=== PATIENT | female | born 1935 | race Caucasian/White ===

== ENCOUNTER 2021-05-16 12:00 | Day surgery (SDC) | payer OTHER, MEDICARE ==
--- NOTE | 2021-05-09 10:33 | RAD REPORT ---
EXAM DESCRIPTION: Abeba Karimi And Hung (2 Views)05/09/2021 10:01 am CLINICAL HISTORY: Preop cardiac catheterization COMPARISON: 2017 FINDINGS: The lungs are moderately hyperaerated. The lungs appear clear of acute infiltrate. The heart is normal size IMPRESSION: COPD without visualization of an acute abnormality
[2021-05-09 10:38] LABS: Potassium 4.5 mmol/L (3.5-5.1)
[2021-05-09 10:59] LABS: Absolute Lymphocytes (CBC) 2.5 K/uL (0.7-4.9); Basophils % 0.4 % (0-1.3); Hematocrit 41.8 % (36.0-45.0); Lymphocytes % 32.6 % (15.3-44.8); MPV 8.1 fL (7.6-11.3); RBC Red Blood Cell Count 4.45 M/uL (3.86-4.86)
[2021-05-09 11:12] LABS: Protime INR 0.9
[~2021-05-16 12:00] MED LIST: NA CHLORIDE 0.9% 500 ML ONE
[2021-05-16] MEDS ORDERED: LIDOCAINE 1% 20 ML MDV ONE (12:30)
[2021-05-16] MEDS ORDERED: HEPA 1000U/500MLS 2,000 UNIT/1,000 ML BAG IV ONE (12:30)
[2021-05-16] MEDS ORDERED: FENTANYL CITR 100 MCG/2 ML ONE (13:56)
[2021-05-16] MEDS ORDERED: ATROPINE SULF 1 MG/10 ML SYR IV ONE (13:56)
[2021-05-16] MEDS ORDERED: MIDAZOLAM HCL 2 MG/2 ML INJ ONE (13:56)
[2021-05-16] MEDS ORDERED: ONDANSETRON 4 MG/2 ML VIAL ONE (14:32)
[2021-05-16] MEDS ORDERED: PROMETHAZINE INJ 25 MG/ML AMP ONE (14:38)
[2021-05-16 16:56] VITALS: TEMP 97.5
[2021-05-16 17:02] VITALS: O2SAT 96
[2021-05-16 17:06] VITALS: BP 148/46
--- NOTE | 2021-05-16 18:16 | OP ---
Date of Procedure: 05/16/2021 Surgeon: SOULEYMANE LAM Procedures Performed: 1.Selective coronary angiogram. 2.Selective bilateral carotid angiogram. 3.Left heart catheterization. Indication: 1.Carotid stenosis by ultrasound. 2.Significant dyspnea on exertion. Access: Right femoral artery 6-Macedonian closed with 6-Macedonian Angio-Seal. Complications: None. Bleeding: Less than 10 mL. Description Of Procedure: After risks, benefits, and alternatives were explained, the patient agreed to procedure and signed informed consent. The patient was brought into cardiac [facility], prepped and draped in usual sterile fashion. Then, I accessed right femoral artery using mp ropuncture kit under ultrasound guidance as well as fluoroscopy, placed a 6-Macedonian [place] sheath. I took a 6-Macedonian JL4 catheter into the aortic root, engaged the left main, took standard views and t hen exchanged for 6-Macedonian JR4 catheter, engaged the RCA, took standard views and the same catheter w as pushed over the wire into the LV, took LVEDP. Then, pullback did not record any gradient. Used c atheter also to engage the brachiocephalic artery and obtained a selective injection of the right com mon carotid artery and then engaged the left common carotid artery and took selective angiogram and t he catheter sheath was removed and placed a 6-Macedonian Angio-Seal with good hemostasis. Findings: 1.Left main has an ostial 20% to 40% stenosis with a very large vessel. 2.LAD; proximal diffuse 20% to 30% stenosis and diagonal 1 branch has proximal 60% stenosis. Otherw ise, the vessel is unremarkable. 3.Left circumflex is normal. 4.RCA is dominant and normal. 5.LVEDP 16 mmHg. Carotid Angiogram: 1.Left common carotid has an ostial 40% to 50% stenosis and then the left internal carotid is totall y normal. Left external carotid has ostial 70% stenosis and small vessel. 2.Right common carotid has diffuse proximal 20% stenosis, otherwise unremarkable. Conclusion: 1.Mild nonobstructive coronary artery disease. 2.Mild nonobstructive carotid stenosis. Plan: Medical management. SR/MODL Voice ID: [id number] Report ID: [id number]
== END 2021-05-16 17:21 | disposition home or self-care (01) ==
LOC: CCL 12:00
PROVIDERS: ATTEND Internal Medicine
DX: I25.10 Atherosclerotic heart disease of native coronary artery without angina pectoris (principal); I65.23 Occlusion and stenosis of bilateral carotid arteries; I10 Essential (primary) hypertension; E78.5 Hyperlipidemia, unspecified; Z20.822 Contact with and (suspected) exposure to COVID-19
CPT/HCPCS: 85025; 80048; 36415; 85610; 85730; 71046; 93458; 36222; U0003; C1893; C1760; J2550; J2250; J3010; J7040; J1644; J2405

== ENCOUNTER 2023-05-26 07:29 | Observation (INO) | payer OTHER, MEDICARE ==
--- OUTSIDE RECORDS SUMMARY | 2023-05-26 07:37 | XMS REPORT | Clinical Summary ---
:1935 Author Organization [facility] MD [facility] Address [address] [place] [address] Care Team Providers Name Role Phone Trista Medina MD Primary Care Provider Sy Ybarra MD Unavailable [phone] Allergies No known active allergies Medications Medication Sig Dispensed Refills Start Date End Date Status SPIRONOLACTONE ORAL 50 mg daily. 0 Active atorvastatin (LIPITOR) 0 Active 80 mg tablet amLODIPine (NORVASC) 10 0 11/29/2020 Active mg tablet levothyroxine 50 mcg 0 Active cap melatonin-pyridoxine, AT BEDTIME 0 06/30/2017 Active vit B6, 5-1 mg tab cyanocobalamin, vitamin Take by mouth 0 Active B-12, (VITAMIN B-12 daily. ORAL) fluorouracil (Efudex) Apply topically 40 g 0 01/03/2021 Active 5% creamIndications: to affected Squamous cell carcinoma area(s) twice of skin of right lower daily. One week limb, including hip after cryotherapy, use for 5 days then stop. Active Problems Not on file Surgical History Surgery Date Site/Laterality Comments COLONOSCOPY HYSTERECTOMY 06/29/1995 - 06/28/1996 Medical History Medical History Date Comments Hypertension 2005 Hyperlipidemia 1980 Hearing loss 2017 Left ear nothing Arthritis Disorder of thyroid gland 1980 Mild Family History Medical History Relation Name Comments Breast cancer Mother Elida fernandez Relation Name Status Comments Mother Elida fernandez Social History Tobacco Use Types Packs/Day Years Used Date Smoking Tobacco: Never Smokeless Tobacco: Never Alcohol Use Standard Drinks/Week Comments Not Currently 3 (1 standard drink = 0.6 oz pure alcoho l) Only hot weather Sex and Gender Information Value Date Recorded Sex Assigned at Female 04/02/2021 8:23 PM CDT Gender Identity Female 04/02/2021 8:23 PM C DT Sexual Orientation Not on file Job Start Date Occupation Industry Not on file Not on file Not on file Obstetrics History Last Filed Vital Signs Not on file Plan of Treatment Health Maintenance Due Date Last Done Comments COVID-19 Vaccination (#1) 09/22/1940 Results Not on fileafter 05/26/2022 Insurance Payer Benefit Plan Subscriber ID Effective Phone Address Typ e / Group Dates MEDICARE MEDICARE PART [id number] 2000-Pres [phone] [place]OV[place]AS Medicare A AND B ent [id number] [address] [facility] DIANE ABERNATHY [phone] [place] AAR-SECONDAR [id number] 2020-Pres P [address]OX [employer] ONLY ent [id number] [place] [address] Mara Pereyra Personal/Family Self 1935 [address] (Home) [place] [address] Care Teams 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
--- OUTSIDE RECORDS SUMMARY | 2023-05-26 07:38 | XMS REPORT | Continuity of Care Document ---
:1935 Author Organization [facility] t Address [address] [facility] [address] [place] [address] Care Team Providers Name Role Phone [phone] Primary Care Physician Unavailable SYSTEM, PROVIDER NOT IN Attending Clinician Unavailable [email or web address] Attending Clinician Unavailable MERRICK STEWART Attending Clinician Unavailable Merrick Stewart MD Attending Clinician REBEL LOPEZ Attending Clinician Unavailable TANI NAVA Attending Clinician Unavailable [email or web address] Admitting Clinician Unavailable Payers Payer Name Policy Type Policy Number Effective Date Expiration Date S mateus MEDICARE PART A \T\ [id number] 2000 B 00:00:00 [facility] [id number] 2020 MEDICARE SUPPLEMENT 00:00:00 MEDICARE PART A AND [id number] 2000 B 00:00:00 [employer]-SECONDARY ONLY [id number] 2020 00:00:00 Problems Condition Condition Condition Status Onset Resolution Last Treating Co mments Source Name Details Category Date Date Treatment Clinician Date No known No known Disease Unive rs active active ity of problems problems [facility] Allergies, Adverse Reactions, Alerts Allergy Allergy Status Severity Reaction(s) Onset Inactive Treating Comm ents Source Name Type Date Date Clinician NO KNOWN Drug Active Univers ALLERGIE Class ity of S [facility] Family History Family Member Diagnosis Comments Start Date Stop Date Source Natural mother Breast cancer [facility] [place] MD Mark Mccormick [facility] Social History Social Habit Start Date Stop Date Quantity Comments Source Exposure to Not sure University SARS-CoV-2 (event) [facility] Sexual orientation [facility] [place] [facility] Tobacco use and 2021-01-03 2021-01-03 Smokeless Universit y of exposure 00:00:00 00:00:00 tobacco non-user [facility] Alcohol intake 2021-01-03 2021-01-03 Ex-drinker University 00:00:00 00:00:00 (finding) [place] MD Saji varner [facility] History of Social 2021-01-03 2021-01-03 Univers ity of function 00:00:00 00:00:00 [place] Saji varner [facility] Alcohol Comment 2021-01-03 2021-01-03 Only hot weather Uni versity of 00:00:00 00:00:00 [place] MD Saji varner [facility] Sex Assigned At [birth year] Bahai 00:00:00 00:00:00 Hospital Smoking Status Start Date Stop Date Source Tobacco smoking consumption Meth [facility] unknown Never smoked tobacco [facility] Medications Ordered Filled Start Stop Current Ordering Indication Dosage Frequency Signature Comments Components Source Medication Medication Date Date Medication? Clinician (SIG) Name Name No known 2020-06 No Univers medications -08 ity of 11:44: [address] SPIRONOLACT 2020-06 Yes 50mg 50 mg Unive rs ONE ORAL 0-12 daily. ity of 13:30: [place] [address] MD Ki camp [facility] atorvastati 2020-06 Yes Vipin camp (LIPITOR) 0-12 ity of 80 mg 13:30: [place] tablet 55 MD Ki camp [facility] levothyroxi 2020-06 Yes Vipin dodge ne 50 mcg 0-12 ity of cap 13:30: [place] 55 MD [facility] cyanocobala 2020-06 Yes Take by Uni vers min, 0-12 mouth ity of vitamin 13:30: daily. [place] B-12, Sandra AMAYA (VITAMIN Anderso B-12 ORAL) zoë [facility] fluorouraci Yes Squamous Apply U nivers l (Efudex) 7-08 cell topically ity of 5% cream 00:00: [place] of skin of affected MD right lower area(s) Saji so limb, twice n including daily. One Canc er hip week after Center cryotherap y, use for 5 days then stop. amLODIPine Yes Univers (NORVASC) 6-03 ity of 10 mg 00:00: [place] tablet 00 [facility] melatonin-p 2017-0 Yes AT BEDTIME Univers yridoxine, 1-02 ity of vit B6, 5-1 00:00: [place] mg tab 00 [facility] Procedures This patient has no known procedures. Plan of Care Planned Activity Planned Date Details Comments Source Future Scheduled 2023-04-26 SHINGLES VACCINES (1 Met [facility] Test 02:16:54 of 2) [code = SHINGLES VACCINES (1 of 2)] Future Scheduled 2023-04-26 65+ PNEUMOCOCCAL Methodi [facility] Test 02:16:54 VACCINE (1 - PCV) [code = 65+ PNEUMOCOCCAL VACCINE (1 - PCV)] Future Scheduled 2023-04-26 COVID-19 VACCINE (3 - [facility] [place] Test 02:16:54 season) [code = COVID-19 VACCINE (3 - season)] Future Scheduled 2023-04-26 INFLUENZA VACCINE Method [facility] Test 02:16:54 (#1) [code = INFLUENZA VACCINE (#1)] Future Scheduled 2023-01-23 COVID-19 Vaccination Uni [facility] Test 05:08:27 (#1) [code = COVID-19 And [facility] Vaccination (#1)] Center Encounters Start End Encounter Admission Attending Care Care Encounter Source Date/Time Date/Time Type Type Clinicians Facility Department ID 2020-12-19 Outpatient SYSTEM, [facility] [id number] 15:34:25 PROVIDER Francis camp 2023-04-27 2023-04-27 Outpatient GC_GCBZW_Ka PRIV PRIV [id number] [facility] 00:00:00 00:00:00 diyala_S [id number] Medic al 2023-04-26 2023-04-26 Outpatient GC_GCBZW_Ka PRIV PRIV [id number] [facility] 00:00:00 00:00:00 diyala_S [id number] Medic al 2021-05-06 2021-05-06 Outpatient Mae STEWART [facility] [id number] Univers 11:15:00 11:30:42 MERRICK menchaca [facility] 2021-05-06 2021-05-06 Outpatient Mae STEWART [facility] [id number] Univers 11:15:00 11:30:42 MERRICK menchaca [facility] 2021-05-06 2021-05-06 Outpatient Mae STEWART [facility] [id number] Univers 11:15:00 11:30:42 MERRICK menchaca [facility] 2021-05-06 2021-05-06 Office TREMAYNE Stewart [id number] Univers 10:44:46 11:30:42 Visit [facility] [id number] [facility]y of [facility] [id number] Mitch dodge [id number] [address] 2021-04-11 2021-04-11 Outpatient JOHN [facility] [id number] [address] [place] [address] 00:00:00 00:00:00 REBEL 150 Method i 2021-04-11 2021-04-11 Outpatient JOHN [facility] [id number] [address] [place] [address] 00:00:00 00:00:00 REBEL 149 Method i 2021-04-09 2021-04-09 Outpatient FLORY NAVA, MDA MDA [id number] 13:17:03 13:52:47 TANI camp 2021-01-03 2021-01-03 Outpatient FLORY NAVA, MDA MDA [id number] 07:28:44 08:36:44 TANI camp 2021-01-03 2021-01-03 Outpatient EL MDA MDA [id number] 07:12:15 07:12:15 Francis camp Results This patient has no known results.
[2023-05-26 09:28] LABS: Absolute Lymphocytes (CBC) 2.6 K/uL (0.7-4.9); Hematocrit 44.3 % (36.0-45.0); Lymphocytes % 31.3 % (15.3-44.8); MCV 96.1 fL (80-100); MPV 7.2 fL (7.6-11.3); Platelets 247 thou/uL (152-406); RBC Red Blood Cell Count 4.61 M/uL (3.86-4.86)
--- NOTE | 2023-05-26 09:32 | RAD REPORT ---
EXAM DESCRIPTION: CT - Head Brain Wo Cont - 05/26/2023 8:57 am CLINICAL HISTORY: HEADACHE COMPARISON: No comparisons TECHNIQUE: Noncontrast head CT images were obtained without IV contrast. Multiplanar reformats were generated and reviewed. All CT scans are performed using dose optimization technique as appropriate and may include automated exposure control or mA/KV adjustment according to patient size. FINDINGS: No intracranial hemorrhage, mass, or edema. Midline structures are unremarkable. Normal ventricular caliber for age. Mild diffuse parenchymal volume loss. Patchy periventricular and deep white matter hypodensities, nonspecific, but most suggestive of chron ic small vessel ischemic changes. Casanova-white matter differentiation is preserved, without evidence of acute infarct. No abnormal extra- axial fluid collections. Mastoid air cells and visualized portions of the paranasal sinuses are clear. No acute bony findings. IMPRESSION: No evidence of an acute intracranial process. Chronic findings as above.
[2023-05-26 09:46] LABS: Potassium 4.4 mEq/L (3.5-5.1)
[2023-05-26 09:49] LABS: Troponin High Sensitivity 360.9 pg/mL (<58.9)
--- NOTE | 2023-05-26 09:56 | ER ---
Nurse's Notes [facility] Name: Mara Pereyra Age: 87 yrs Sex: Female : 1935 Arrival Date: 05/26/2023 Time: 07:29 Bed 13 Private MD: Sy Ybarra V Diagnosis: Non ST elevation FL;Essential (primary) hypertension Presentation: 05/26 07:51 Chief complaint: Patient states: high BP reading at home, was 217/106 , takes Coreg 10 iw mg daily , normally takes it at night but she took an extra one this morning. Coronavirus screen: At this time, the client does not indicate any symptoms associated with coronavirus-19. Ebola Screen: Patient negative for fever greater than or equal to 101.5 degrees Fahrenheit, and additional compatible Ebola Virus Disease symptoms Patient denies exposure to infectious person. Patient denies travel to an Ebola-affected area in the 21 days before illness onset. No symptoms or risks identified at this time. Risk Assessment: Do you want to hurt yourself or someone else? Patient reports no desire to harm self or others. Onset of symptoms was May 26, 2023. 07:51 Method Of Arrival: Ambulatory iw 07:51 Acuity: LYSSA 3 iw 07:52 Initial Sepsis Screen: Does the patient meet any 2 criteria? Does the patient have a iw suspected source of infection? No. Patient's initial sepsis screen is negative. Historical: - Allergies: 07:53 No Known Allergies; iw - PMHx: 07:53 Hypertensive disorder; iw - Immunization history:: Adult Immunizations unknown. - Social history:: Smoking status: unknown. Screenin:30 [facility] ED Fall Risk Assessment (Adult) Score/Fall Risk Level 0 - 2 = Low Risk aa5 Oriented to surroundings, Maintained a safe environment, Hourly rounding (assess needs \T\ fall precautionary measures) done. Abuse screen: Denies threats or abuse. Denies injuries from another. Nutritional screening: No deficits noted. Tuberculosis screening: No symptoms or risk factors identified. Assessment: 09:10 General: Appears in no apparent distress. comfortable, Behavior is calm, cooperative, aa5 appropriate for age. 09:10 Pain: Denies pain. Neuro: Level of Consciousness is awake, alert, obeys commands, aa5 Oriented to person, place, time, situation. Cardiovascular: Patient's skin is warm and dry. Respiratory: Airway is patent Respiratory effort is even, unlabored. 10:13 General: Appears in no apparent distress. comfortable, Behavior is calm, cooperative, mb9 appropriate for age. Pain: Denies pain. Neuro: Level of Consciousness is awake, alert, obeys commands, Oriented to person, place, time, situation. Cardiovascular: Heart tones S1 S2 present Patient's skin is warm and dry. Rhythm is regular. Respiratory: Airway is patent Respiratory effort is even, unlabored, Respiratory pattern is regular, symmetrical. GI: Abdomen is flat, non-distended, Bowel sounds present X 4 quads. Abd is soft and non tender X 4 quads. : No signs and/or symptoms were reported regarding the genitourinary system. EENT: No signs and/or symptoms were reported regarding the EENT system. Derm: Skin is pink, warm \T\ dry. Musculoskeletal: Range of motion: intact in all extremities. 12:00 Reassessment: No changes from previously documented assessment. Patient and/or family mb9 updated on plan of care and expected duration. Pain level reassessed. Patient is alert, oriented x 3, equal unlabored respirations, skin warm/dry/pink. 13:45 Reassessment: No changes from previously documented assessment. Patient and/or family mb9 updated on plan of care and expected duration. Pain level reassessed. Patient is alert, oriented x 3, equal unlabored respirations, skin warm/dry/pink. Vital Signs: 07:52 BP 205 / 77; Pulse 63; Resp 16; Temp 98.1; Pulse Ox 98% on R/A; iw 09:27 BP 183 / 72; Pulse 51; Resp 18; Pulse Ox 100% on R/A; mb9 10:13 BP 161 / 67; Pulse 53; Resp 16; Pulse Ox 100% on R/A; mb9 10:20 Weight 71.21 kg; Height 5 ft. 3 in. ; mb9 12:45 BP 163 / 72; Pulse 56; Resp 16; Pulse Ox 100% on R/A; mb9 14:28 BP 142 / 54; Pulse 69; Resp 16; Pulse Ox 100% on R/A; mb9 10:20 Body Mass Index 27.81 (71.21 kg, 160.02 cm) mb9 ED Course: 07:30 Patient arrived in ED. rg4 07:30 Sy Ybarra MD is Private Physician. rg4 07:37 Duane Russell DO is Attending Physician. ms3 07:52 Triage completed. iw 07:54 Arm band placed on. iw 08:59 CT Head Brain wo Cont In Process Unspecified. EDMS 09:07 XRAY Chest (1 view) In Process Unspecified. EDMS 09:10 Patient has correct armband on for positive identification. Bed in low position. Call aa5 light in reach. Adult w/ patient. 09:10 Provided Education on: call light, fall precautions. aa5 09:22 Initial lab(s) drawn, by wv, sent to lab. Inserted saline lock: 22 gauge in right em1 forearm, using aseptic technique. Blood collected. 09:27 Mara Leo, ASTRID is Primary Nurse. mb9 09:33 EKG done, by ED staff, reviewed by Duane Russell DO. em1 09:55 Sy Ybarra MD is Hospitalizing Provider. ms3 10:14 No provider procedures requiring assistance completed. Patient admitted, IV remains in mb9 place. Administered Medications: 10:13 Drug: Aspirin PO 325 mg PO once Route: PO; mb9 10:25 Follow up: Response: No adverse reaction mb9 10:25 Drug: Enoxaparin Sub-Q 1 mg/kg Sub-Q once Route: Sub-Q; Site: left lower abdomen; mb9 11:33 Follow up: Response: No adverse reaction mb9 Medication: 13:25 VIS not applicable for this client. iw Outcome: 09:55 Decision to Hospitalize by Provider. ms3 15:56 Admitted to OR Report called to ASTRID Wong mb9 15:56 Condition: stable 15:56 Instructed on the need for admit, 15:57 Patient left the ED. mb9 Signatures: Dispatcher [employer] EDMS Vira Knutson RN RN iw Camron Parker em1 Nilda Lino RN RN aa5 Garcia, Rubi rg4 Duane Russell DO DO ms3 Mara Leo RN RN mb9 Corrections: (The following items were deleted from the chart) 07:53 07:51 Chief complaint: Patient states: high BP reading at home, was 217/106 iw iw 09:20 09:18 Nilda Lino, ASTRID is Primary Nurse. aa5 aa5 10:13 10:05 BP 169 / 70; Pulse 53bpm; Resp 16bpm; Pulse Ox 100% RA; mb9 mb9
--- NOTE | 2023-05-26 09:56 | EDPHYS ---
Physician Documentation [facility] Name: Mraa Pereyra Age: 87 yrs Sex: Female : 1935 Arrival Date: 05/26/2023 Time: 07:29 Bed 13 Private MD: Sy Ybarra V ED Physician Duane Russell HPI: 05/26 08:48 This 87 yrs old Female presents to ER via Ambulatory with complaints of High Blood ms3 Pressure. 08:48 87-year-old female with past medical history of hypertension presents to the emergency ms3 department for elevated blood pressure that was noted this morning. Patient states on waking up she had frontal head pressure behind her eyes that she rated 7/10. Patient states she then took her blood pressure and noted it was elevated on several readings. Patient denies nausea, vomiting. Patient states she sees Dr. Ybarra. Historical: - Allergies: 07:53 No Known Allergies; iw - PMHx: 07:53 Hypertensive disorder; iw - Immunization history:: Adult Immunizations unknown. - Social history:: Smoking status: unknown. ROS: 08:48 Constitutional: Negative for fever, and chills. Neck: Negative for injury, pain, and ms3 swelling, Cardiovascular: Negative for chest pain, and palpitations. Respiratory: Negative for shortness of breath, cough, wheezing, and pleuritic chest pain, Abdomen/GI: Negative for abdominal pain, nausea, vomiting, diarrhea, and constipation, Skin: Negative for injury, rash, and discoloration, 08:48 Neuro: Positive for headache, 08:48 All other systems are negative, Exam: 08:48 Constitutional: This is a well developed, well nourished patient who is awake, alert, ms3 and in no acute distress. Head/Face: Normocephalic, atraumatic. Neck: Trachea midline, no cervical lymphadenopathy. Supple, full range of motion without nuchal rigidity, or vertebral point tenderness. No Meningismus. Chest/axilla: Normal chest wall appearance and motion. Nontender with no deformity. Cardiovascular: Regular rate and rhythm with a normal S1 and S2. No gallops, murmurs, or rubs. Normal PMI, no JVD. No pulse deficits. Respiratory: Lungs have equal breath sounds bilaterally, clear to auscultation and percussion. No rales, rhonchi or wheezes noted. No increased work of breathing, no retractions or nasal flaring. Abdomen/GI: Soft, non-tender, with normal bowel sounds. No distension or tympany. No guarding or rebound. No evidence of tenderness throughout. Skin: Warm, dry with normal turgor. Normal color with no rashes, no lesions, and no evidence of cellulitis. MS/ Extremity: Pulses equal, no cyanosis. Neurovascular intact. Full, normal range of motion. Neuro: Awake and alert, GCS 15, oriented to person, place, time, and situation. Cranial nerves II-XII grossly intact. Motor strength 5/5 in all extremities. Sensory grossly intact. Cerebellar exam normal. Normal gait. 10:26 ECG was reviewed by the Attending Physician. ms3 Vital Signs: 07:52 BP 205 / 77; Pulse 63; Resp 16; Temp 98.1; Pulse Ox 98% on R/A; iw 09:27 BP 183 / 72; Pulse 51; Resp 18; Pulse Ox 100% on R/A; mb9 10:13 BP 161 / 67; Pulse 53; Resp 16; Pulse Ox 100% on R/A; mb9 10:20 Weight 71.21 kg; Height 5 ft. 3 in. ; mb9 12:45 BP 163 / 72; Pulse 56; Resp 16; Pulse Ox 100% on R/A; mb9 14:28 BP 142 / 54; Pulse 69; Resp 16; Pulse Ox 100% on R/A; mb9 10:20 Body Mass Index 27.81 (71.21 kg, 160.02 cm) mb9 MDM: 08:00 Patient medically screened. ms3 08:48 Differential diagnosis: hypertensive crisis, Malignant HTN, intracerebral hemorrhage. ms3 09:06 Independent interpretation of the following test(s) in the Emergency Department CT ms3 Scan: My interpretation is CT Head images reviewed by me does not reveal ICH. 10:24 Data reviewed: vital signs, nurses notes, lab test result(s), EKG, radiologic studies, ms3 and as a result, I will discharge patient. Consideration of Admission/Observation Patient was admitted/placed on observation. Management of patient was discussed with the following: Hospitalist: Dr Ybarra. Go Go Dancer: Dr Ford. I considered the following discharge prescriptions or medication management in the emergency department Medications were administered in the Emergency Department. See MAR. Historians other than the Patient: Spouse/Significant Other: Patient's . Care significantly affected by the following chronic conditions: Hypertension. Counseling: I had a detailed discussion with the patient and/or guardian regarding the historical points, exam findings, and any diagnostic results supporting the discharge/admit diagnosis, lab results, radiology results, the need for further work-up and treatment in the hospital. ED course: Discussed case with Dr. Ford and Dr. Ford. Dr. Espinal recommends 1 dose of Lovenox.. 12:59 ED course: Called from lab for increase in troponin to 2727. Discussed with Dr Ford. ms3 He will take patient to cath today. Keep NPO. Updated Dr Ybarra on elevation of troponin.. 05/26 08:48 Order name: Basic Metabolic Panel; Complete Time: 09:51 ms3 05/26 08:48 Order name: CBC with Diff; Complete Time: 09:51 ms3 05/26 08:48 Order name: Troponin HS; Complete Time: 09:51 ms3 05/26 11:56 Order name: Basic Metabolic Panel EDMS 05/26 11:56 Order name: Basic Metabolic Panel EDMS 05/26 11:56 Order name: CBC with Automated Diff EDMS 05/26 11:56 Order name: CBC with Automated Diff EDMS 05/26 11:56 Order name: Troponin High Sensitivity EDMS 05/26 08:48 Order name: XRAY Chest (1 view); Complete Time: 11:52 ms3 05/26 08:48 Order name: CT Head Brain wo Cont; Complete Time: 09:51 ms3 05/26 08:48 Order name: EKG; Complete Time: 08:48 ms3 05/26 11:56 Order name: EKG Electrocardiogram EDMS 05/26 11:56 Order name: EKG Electrocardiogram EDMS 05/26 11:56 Order name: EKG Electrocardiogram EDMS 05/26 11:56 Order name: EKG Electrocardiogram EDMS 05/26 11:58 Order name: CONS Physician Consult EDMS 05/26 13:00 Order name: EKG; Complete Time: 13:01 ms3 05/26 08:48 Order name: Cardiac monitoring; Complete Time: 09:18 ms3 05/26 08:48 Order name: EKG - Nurse/Tech; Complete Time: 09:28 ms3 05/26 08:48 Order name: IV Saline Lock; Complete Time: 09:22 ms3 05/26 08:48 Order name: Labs collected and sent; Complete Time: : ms3 05/26 08:48 Order name: O2 Per Protocol; Complete Time: 09:18 ms3 05/26 08:48 Order name: O2 Sat Monitoring; Complete Time: 09:18 ms3 05/26 12:59 Order name: NPO; Complete Time: 13:01 ms3 EC:26 Rate is 59 beats/min. Rhythm is regular. QRS [place] is Normal. [place] interval is normal. QRS ms3 interval is normal. Clinical impression: NSR w/ Non-specific ST/T Changes. Interpreted by me. Reviewed by me. Administered Medications: 10:13 Drug: Aspirin PO 325 mg PO once Route: PO; mb9 10:25 Follow up: Response: No adverse reaction mb9 10:25 Drug: Enoxaparin Sub-Q 1 mg/kg Sub-Q once Route: Sub-Q; Site: left lower abdomen; mb9 11:33 Follow up: Response: No adverse reaction mb9 Disposition Summary: 05/26/23 09:55 Hospitalization Ordered Notes: Hospitalization Status: Inpatient Admission ms3 Provider: Sy Ybarra ms3 Location: Telemetry/MedSurg (Inpatient) ms3 Condition: Stable ms3 Problem: new ms3 Symptoms: are unchanged ms3 Bed/Room Type: Standard ms3 Room Assignment: 230(05/26/23 15:53) bd Diagnosis - Non ST elevation [place] ms3 - Essential (primary) hypertension ms3 Forms: - Medication Reconciliation Form ms3 - SBAR form ms3 - Leadership Thank You Letter ms3 Critical care time excluding procedures: :26 Critical care time: Bedside Care: 30 minutes, Consultation: 10 minutes, Family ms3 Intervention: 10 minutes. Total time: 50 minutes Signatures: Dispatcher [employer] Priscilla Fuentes Irene, RN RN iw Calderon, Audri, RN RN [email or web address] Duane Russell DO DO ms3 Mara Leo RN RN mb9 Corrections: (The following items were deleted from the chart) 15:53 09:55 ms3 bd
[2023-05-26] MEDS ORDERED: ASPIRIN 325 MG TAB ONE ×2 (10:21→13:47)
[2023-05-26] MEDS ORDERED: ENOXAPARIN 80 MG/0.8 ML SQ ONE (10:36)
--- NOTE | 2023-05-26 11:29 | RAD REPORT ---
EXAM DESCRIPTION: RADChest Single View05/26/2023 9:06 am CLINICAL HISTORY: HTN COMPARISON: Chest Pa And Lat (2 Views) dated 05/09/2021; Chest Pa And Lat (2 Views) dated 05/07/2017; CHEST PA AND LAT 2 VIEW dated 11/11/2012 TECHNIQUE: Portable AP view of the chest. FINDINGS: The lungs are clear. Right basilar atelectasis, stable. No pneumothorax or effusion. The cardiomediastinal contours are unremarkable. IMPRESSION: No acute cardiopulmonary process.
[2023-05-26] MEDS ORDERED: ONDANSETRON 4 MG/2 ML VIAL IV PRN (11:53)
[2023-05-26] MEDS ORDERED: HEPA 1000U/500MLS 2,000 UNIT/1,000 ML BAG IV ONE (13:44)
[2023-05-26] MEDS ORDERED: LIDOCAINE 1% 20 ML MDV ONE (13:44)
[2023-05-26] MEDS ORDERED: HEPARIN 5000 UNIT/ML 1 ML VIAL ONE (13:45)
[2023-05-26] MEDS ORDERED: FENTANYL CITR 100 MCG/2 ML ONE (13:45)
[2023-05-26] MEDS ORDERED: VERAPAMIL HCL 10 MG/4 ML VIAL IV ONE (13:45)
[2023-05-26] MEDS ORDERED: MIDAZOLAM HCL 2 MG/2 ML INJ ONE (13:45)
[2023-05-26] MEDS ORDERED: HEPARIN 10,000 UNIT/10 ML VIAL IV ONE (13:45)
[2023-05-26] MEDS ORDERED: CLOPIDOGREL 75 MG TABLET ONE (13:46)
[2023-05-26] MEDS ORDERED: ATROPINE SULF 1 MG/10 ML SYR IV ONE (13:46)
[2023-05-26] MEDS ORDERED: TICAGRELOR 90 MG TABLET PO ONE (13:47)
[2023-05-26] MEDS ORDERED: NA CHLORIDE 0.9% 500 ML ONE (16:31)
[2023-05-26] MEDS ORDERED: ONDANSETRON 4 MG/2 ML VIAL ONE (17:12)
--- NOTE | 2023-05-26 18:00 | P.SSS ---
Patient History Date of Service: 05/26/23 Reason for admission: NOT FEELING WELL. History of Present Illness: THIS AM. STEFANY FELT FATIGUED AND BP WENT TO 200 SYSTOLIC SHE HAS NO CHEST PAIN. DR. LAM DID URGENT CATH THAT WAS NEGATIVE. HE WILL DO ECHO AND COVID TEST. WILL GO HOME IN AM. Allergies No Known Allergies Allergy (Verified 05/09/21 09:35) Home medications list reviewed: Yes Home Medications: Amlodipine Besylate 10 mg PO DAILY AFTER SUPPER 06/30/17 Atorvastatin Calcium 40 mg PO DAILY 06/30/17 Estrogens,Conj Cream [Premarin 0.625MG/Gm] 1 appl VAG DAILY 06/30/17 Levothyroxine [Synthroid] 50 mcg PO [id number] 06/30/17 Losartan Potassium 100 mg PO [id number] 06/30/17 Melatonin/Pyridoxine [Melatonin 5 mg Tablet] 2 each PO BEDTIME 06/30/17 [place]-3S/Dha/Epa/Fish Oil [Fish Oil 1,200 mg Softgel] 1 each PO DAILY 06/30/17 Solifenacin [Vesicare] 5 mg PO DAILY 06/30/17 - Past Medical/Surgical History Diabetic: No -: hypothyroidism -: hypertension -: hyperlipidemia -: arthritis -: osteopenia -: TBH/BSO 1998 -: cataracts removal -: tonsillecotomy 1941 -: NVD 58/59/62 - Family History Father -: Heart disease Notes: mother had breast cancer - Social History Alcohol use: No CD- Drugs: No Caffeine use: No Review of Systems 10-point ROS is otherwise unremarkable Physical Examination - Vital Signs Temperature: 98.1 F Blood Pressure: 142/54 Pulse: 69 Respirations: 16 - Physical Exam General: Oriented x3, Mild distress HEENT: Atraumatic, PERRLA, Mucous membr. moist/pink, EOMI, Sclerae nonicteric Neck: Supple, 2+ carotid pulse no bruit, No LAD, Without JVD or thyroid abnormality Respiratory: Clear to auscultation bilaterally, Normal air movement Cardiovascular: Regular rate/rhythm, Normal S1 S2 Gastrointestinal: Normal bowel sounds, No tenderness Musculoskeletal: No tenderness Integumentary: No rashes Neurological: Normal gait, Normal speech, Normal strength at 5/5 x4 extr, Normal tone, Normal affect Lymphatics: No axilla or inguinal lymphadenopathy - Studies Laboratory Data (last 24 hrs) 11/28/23 11/28/23 09:20 09:20 WBC 8.20 Hgb 14.7 Hct 44.3 Plt Count 247 Sodium 134 L Potassium 4.4 BUN 22 H Creatinine 0.81 Glucose 105 - Diagnosis (Problem(s)) (1) Fatigue Current Visit: Yes Status: Acute Plan: CATH NEG COVID PENDING ECHO PENDING STABLE FOR DC IN AM. - Disposition Disposition: ROUTINE DISCHARGE
[2023-05-26 18:32] LABS: SARS-CoV-2 Antigen Rapid Res Negative (Negative)
--- NOTE | 2023-05-26 19:19 | OP ---
Surgeon: SOULEYMANE LAM Procedures Performed: 1.Selective coronary angiogram. 2.Left heart catheterization. Indication: [id number] myocardial infarction. Access: Right radial artery 6-Welsh closed with TR band. Complications: None. Bleeding: Less than 20 mL. Anesthesia: Total sedation time was 45 minutes. Description Of Procedure: After risks, benefits, alternatives were explained, patient agreed to proc edure, and signed informed consent. Patient was brought into the cardiac catheterization laboratory, prepped and draped in the usual sterile fashion. I accessed the right radial artery using pediatric micropuncture kit, placed a 6-Welsh Slender sheath, took 5-Welsh Ono 4.0 catheter into the aorti c root over a J-wire, engaged left main and then right coronary artery, took standard views and the c atheter was pushed over the wire into the LV, measured the LVEDP. Pullback did not record any gradie nt. Then I removed the catheter and the sheath, placed TR band with good hemostasis. Findings: 1.Left main; large and normal. 2.LAD; large vessel. Proximal segment is normal. Mid segment, there is focal long 40% to 50% steno sis. Diagonal branch has ostial 50% stenosis. Rest of the LAD appears to be normal. 3.Left circumflex; large vessel and is normal. 4.RCA; large and dominant, proximal 30% to 40%, otherwise it is normal vessel. 5.Normal LVEDP at 5 mmHg. Conclusion: 1.Slmv-[id number] nonobstructive coronary artery disease. 2.Normal LVEDP. Recommendation: To check the patient for COVID and/or influenza and obtain echocardiogram tomorrow m orning and I will follow the patient with you. /LEEANNA Voice ID: [id number] Report ID: [id number]
[2023-05-26 19:37] VITALS: BMI 27.8
[2023-05-27 07:57] LABS: Absolute Lymphocytes (CBC) 2.6 K/uL (0.7-4.9); Hematocrit 39.9 % (36.0-45.0); MCV 96.3 fL (80-100); MPV 7.4 fL (7.6-11.3); Platelets 237 thou/uL (152-406); RBC Red Blood Cell Count 4.15 M/uL (3.86-4.86)
[2023-05-27 08:17] LABS: Potassium 4.1 mEq/L (3.5-5.1)
[2023-05-27] MEDS ORDERED: ASPIRIN EC 81 MG TAB PO SCH (09:00)
[2023-05-27 11:54] VITALS: O2SAT 98
[2023-05-27 15:02] VITALS: BP 147/65; TEMP 97.8
--- NOTE | 2023-05-28 15:16 | EKG ---
Test Date: 2023-05-27 Test Time: 10:25:58 Bridge Rigger: PEDRO LUIS MEASUREMENT RESULTS: Intervals: Rate: 58 OR: 164 QRSD: 134 QT: 528 QTc: 518 [place]: P: 55 OR: 164 QRS: -13 T: 213 INTERPRETIVE STATEMENTS: Sinus bradycardia with sinus arrhythmia Left bundle branch block Abnormal ECG Compared to ECG 05/26/2023 13:10:20 Left bundle-branch block now present Sinus rhythm no longer present Myocardial infarct finding no longer present Electronically Signed On 05-28-23 15:12:19 TEAROOM HOSTESS by Bill Ford
--- NOTE | 2023-05-28 15:22 | EKG ---
Test Date: 2023-05-26 Test Time: 13:10:20 Marketing Services Manager: MB MEASUREMENT RESULTS: Intervals: Rate: 72 AL: 168 QRSD: 138 QT: 444 QTc: 486 [place]: P: 72 AL: 168 QRS: 55 T: 67 INTERPRETIVE STATEMENTS: Normal sinus rhythm with sinus arrhythmia Nonspecific intraventricular block Possible Lateral infarct, age undetermined Abnormal ECG Compared to ECG 05/26/2023 09:29:58 Sinus bradycardia no longer present Myocardial infarct finding still present Electronically Signed On 05-28-23 15:13:45 DIRECTOR OF OPERATIONS SUPPORT by Bill Ford
--- NOTE | 2023-05-28 15:23 | EKG ---
Test Date: 2023-05-26 Test Time: 09:29:58 Reimbursement Specialist: JENNIFER MEASUREMENT RESULTS: Intervals: Rate: 59 MA: 162 QRSD: 140 QT: 472 QTc: 467 [place]: P: 76 MA: 162 QRS: 62 T: 68 INTERPRETIVE STATEMENTS: Sinus bradycardia with sinus arrhythmia Nonspecific intraventricular block Possible Lateral infarct, age undetermined Abnormal ECG Compared to ECG 11/11/2012 09:13:39 Myocardial infarct finding now present Sinus rhythm no longer present Electronically Signed On 05-28-23 15:14:05 ACCOUNT ADVISOR by Bill Ford
== END 2023-05-27 18:10 | disposition home or self-care (01) ==
LOC: ER 07:29 → ERHOLD 12:06 → 2ND 18:03
PROVIDERS: ADMIT Internal Medicine; ATTEND Internal Medicine
PROC: 4A023N7 Measurement of Cardiac Sampling and Pressure, Left Heart, Percutaneous Approach (ICD-10-PCS; principal; 2023-05-26)
PROC: B2111ZZ Fluoroscopy of Multiple Coronary Arteries using Low Osmolar Contrast (ICD-10-PCS; 2023-05-26)
DX: I21.4 Non-ST elevation (NSTEMI) myocardial infarction (principal); I25.10 Atherosclerotic heart disease of native coronary artery without angina pectoris; I10 Essential (primary) hypertension; R53.83 Other fatigue; E03.9 Hypothyroidism, unspecified; E78.5 Hyperlipidemia, unspecified; M19.90 Unspecified osteoarthritis, unspecified site; M85.80 Other specified disorders of bone density and structure, unspecified site; Z79.899 Other long term (current) drug therapy; Z11.52 Encounter for screening for COVID-19; Z82.49 Family history of ischemic heart disease and other diseases of the circulatory system; Z80.3 Family history of malignant neoplasm of breast
CPT/HCPCS: 93005 ×3; 85025 ×2; 80048 ×2; 36415; 84484 ×2; 87804 ×2; 70450; 71045; 93458; 76937; 96372; 99285; 87811; C1893; Q9966; J1644; J2001; J2250; J3010; J2405; G0378 ×5; J7040; 99152; 99153; J0461

== ENCOUNTER → 2023-07-27 | Emergency (ER) | payer OTHER, MEDICARE ==
[~2023-07-27] MED LIST changes: +LABETALOL 20 MG/4ML SYRINGE IV ONE; -NA CHLORIDE 0.9% 500 ML ONE; +TENECTEPLASE 50 MG/10 ML VIAL IV ONE
--- OUTSIDE RECORDS SUMMARY | 2023-07-27 11:52 | XMS REPORT | Clinical Summary ---
Author Name Unknown Organization [facility] Address [address] [place] [address] Care Team Providers Care Early Childhood Aide Classroom Name Role Phone Trista Medina MD Primary Care Provider [phone] Sy Ybarra MD Unavailable [phone] Allergies No known active allergies Medications Medication Sig Dispensed Refills Start Date End Date Status SPIRONOLACTONE ORAL 50 mg daily. 0 Act michelle atorvastatin (LIPITOR) 80 mg tablet 0 Active amLODIPine (NORVASC) 10 mg tablet 0 11/29/2020 Active levothyroxine 50 mcg cap 0 Active melatonin-pyridoxine, vit B6, 5-1 mg tab AT BEDTIME 0 06/30/2017 Active cyanocobalamin, vitamin B-12, (VITAMIN B-12 ORAL) Take by mouth daily. 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 One week after cryotherapy, use for 5 days then stop. 40 g 0 01/03/2021 Active Surgical History Surgery Date Site/Laterality Comments COLONOSCOPY [...] 3 (1 standard drink = 0.6 oz pur e alcohol) Only hot weather Sex and Gender Information Value Date Recorded Sex Assigned at Female 04/02/2021 8:23 PM CDT Gender Identity Female 04/02/2021 8:23 PM CDT Sexual Orientation Not on file Job Start Date Occupation Industry Not on file Not on file Not on file Obstetrics History Plan of Treatment Health Maintenance Due Date Last Done Comments COVID-19 Vaccination (#1) 09/22/1940 Care Teams Early Childhood Aide Classroom Relationship Specialty Start Date End Date Trista Medina MD PCP - General Dermatology 12/26/20 Sy Ybarra MD [address] [place] [id number] PCP - External Primary Care Provider Internal Medicine 01/03/21
--- NOTE | 2023-07-27 12:19 | RAD REPORT ---
EXAM DESCRIPTION: CT - Ct Stroke Brain Wo Cont - 07/27/2023 12:06 pm CLINICAL HISTORY: aphasia COMPARISON: none TECHNIQUE: Computed axial tomography of the head was obtained. All CT scans are performed using dose optimization technique as appropriate and may include automated exposure control or mA/KV adjustment according to patient size. FINDINGS: An intracranial bleed is not seen . The ventricles are normal in caliber. No extra-axial fluid collection is noted. Moderate low-density within periventricular, deep and subcortical white matter likely ischemic change s secondary to small vessel disease Fluid within the sinuses/ mastoids is not seen. IMPRESSION: No acute intracranial abnormality is seen. If patient's symptoms persist MRI of the bra in would be recommended Dr Gonzales of the emergency room was notified at 12:02 p.m. July 27, 2023
[2023-07-27 12:33] LABS: Absolute Lymphocytes (CBC) 3.1 K/uL (0.7-4.9); Hematocrit 40.5 % (36.0-45.0); Lymphocytes % 34.9 % (15.3-44.8); MCV 94.1 fL (80-100); MPV 7.5 fL (7.6-11.3); Platelets 250 thou/uL (152-406)
[2023-07-27 12:44] LABS: Protime INR 1.01
--- NOTE | 2023-07-27 12:44 | RAD REPORT ---
EXAM DESCRIPTION: Jennifer Angio07/27/2023 12:08 pm CLINICAL HISTORY: aphasia COMPARISON: None TECHNIQUE: 100 cc Isovue [address] angiogram of the neck was obtained. 3D MIPS reconstruction performed. All CT scans are performed using dose optimization technique as appropriate and may include automated exposure control or mA/KV adjustment according to patient size. FINDINGS: Severe calcified plaque left carotid bulb/proximal left internal carotid artery Mild calcified plaque remainder of the common carotid, internal carotid and right external carotid ar shannon. High-grade stenosis proximal right external carotid artery. Vertebral arteries unremarkable No dissection is seen. IMPRESSION: Severe calcified plaque left carotid bulb/proximal left internal carotid artery [place] Mild stenosis 0 to 49 % Moderate stenosis 50-69% Severe stenosis 70-99%
--- NOTE | 2023-07-27 12:48 | RAD REPORT ---
EXAM DESCRIPTION: CTHead angio07/27/2023 12:08 pm CLINICAL HISTORY: aphasia COMPARISON: none TECHNIQUE: 100 cc Isovue [address] angiogram of the head was obtained. 3D MIPS reconstruction performed. All CT scans are performed using dose optimization technique as appropriate and may include automated exposure control or mA/KV adjustment according to patient size. FINDINGS: The basilar, anterior cerebral, middle cerebral and posterior cerebral arteries do not dem onstrate a significant stenosis Mild calcified plaque distal internal carotid arteries origin right posterior cerebral artery An aneurysm is not seen No large vessel occlusion IMPRESSION: No significant abnormality is displayed
[2023-07-27 12:52] LABS: Albumin 3.9 g/dL (3.4-5.0); Bilirubin Direct 0.1 mg/dL (0-0.2); Bilirubin Indirect, Calculated 0.5 mg/dL (0.2-0.8); Bilirubin Total 0.6 mg/dL (0.2-1.0); Magnesium 1.8 mg/dL (1.6-2.4); Potassium 4.2 mEq/L (3.5-5.1); Protein, Total 7.7 g/dL (6.4-8.2); Troponin High Sensitivity 12.3 pg/mL (<58.9)
--- NOTE | 2023-07-27 13:16 | RAD REPORT ---
[facility] CLINICAL HISTORY: cva COMPARISON: [place] Protocol dated 10/15/2022hest Single View dated 05/26/2023; Chest Pa And Lat (2 Vi ews) dated 05/09/2021; Chest Pa And Lat (2 Views) dated 05/07/2017; CHEST PA AND LAT 2 VIEW dated 11/11 TECHNIQUE: Portable AP view of the chest. FINDINGS: The lungs are clear. No pneumothorax or effusion. The cardiomediastinal contours are unre markable. IMPRESSION: No acute cardiopulmonary process.
--- NOTE | 2023-07-27 14:12 | ER ---
Nurse's Notes [facility] Name: Mara Pereyra Age: 87 yrs Sex: Female : 1935 Arrival Date: 07/27/2023 Time: 11:49 Bed 15 Private MD: Diagnosis: Severe left carotid stenosis;Cerebrovascular accident Presentation: 07/27 11:50 Chief complaint: Spouse and/or significant other states: SLURRED SPEECH AND EXPRESSIVE bp APHASIA <1 HR. Coronavirus screen: At this time, the client does not indicate any symptoms associated with coronavirus-19. Ebola Screen: No symptoms or risks identified at this time. Initial Sepsis Screen: Does the patient meet any 2 criteria? No. Patient's initial sepsis screen is negative. Does the patient have a suspected source of infection? No. Patient's initial sepsis screen is negative. Risk Assessment: Do you want to hurt yourself or someone else? Patient reports no desire to harm self or others. Onset of symptoms was July 27, 2023 at 10:50. 11:50 Method Of Arrival: Wheelchair bp 11:50 Acuity: LYSSA 2 bp Triage Assessment: 11:50 General: Appears distressed, Behavior is cooperative, appropriate for age, anxious. bp Pain: Denies pain. Neuro: Level of Consciousness is awake, alert, obeys commands, Gait is unsteady, Speech is slurred, with expressive aphasia noted, Facial symmetry appears normal. Historical: - Allergies: 11:50 No Known Allergies; bp - PMHx: 11:50 Hypertensive disorder; bp - Immunization history:: Adult Immunizations up to date. - Social history:: Smoking status: Patient denies any tobacco usage or history of. - Family history:: not pertinent. Screenin:50 [facility] ED Fall Risk Assessment (Adult) History of falling in the last 3 months, bp including since admission No falls in past 3 months (0 pts). Abuse screen: Denies threats or abuse. Denies injuries from another. Nutritional screening: No deficits noted. Tuberculosis screening: No symptoms or risk factors identified. 12:45 [place] Swallow Protocol Exclusion Criteria: Unable to remain alert for testing: No NPO bp for medical/surgical reason by provider order No Tracheostomy tube present No No thin liquids due to preexisting dysphagia/baseline modified diet thickened liquids No Exclusion Criteria Result: Proceed Brief Cognitive Screen What is your name? Normal, Where are you right now? Normal, What year is it? Normal. Oral Mechanism Examination Facial Symmetry: Normal, Motion: Normal, Lip Closure: Normal, Oral Mechanism Result: Normal. 3 oz Water Swallow Challenge: Pt able to drink all water without stopping, coughing, choking or throat clearing: Yes Result: PASS. Assessment: 11:50 General: PT TO CT. STROKE ALERT CALLED. bp 11:50 Reassessment: MD IN CT WITH PT. NIHSS CURRENTLY 0. bp 12:20 Reassessment: PT ENDORSES RETURN OF S/S. MD AT B/S FOR RE-EVAL. NIHSS 2, EXPRESSIVE bp APHASIA AND BLURRED VISION. 12:45 Reassessment: CONSENT FOR TNKASE WITH PT AND SPOUSE. TNKASE 19MG IVP. bp 13:30 Reassessment: NIHSS 0 Patient states symptoms have improved. bp 14:33 Reassessment: REPORT TO [facility] FOR [facility] 75. TRANSPORT EN ROUTE. bp Vital Signs: 12:22 BP 200 / 66 LA; Pulse 83; Pulse Ox 98% on R/A; Weight 74 kg; bp 12:30 BP 151 / 58; Pulse 57; Resp 16; Pulse Ox 99% ; bp 13:30 BP 156 / 57; Pulse 61; Resp 15; Pulse Ox 99% ; bp 14:30 BP 169 / 63; Pulse 62; Resp 16; Pulse Ox 100% ; bp NIH Stroke Scale Scores: 11:50 NIHSS Score: 0 bp 13:30 NIHSS Score: 0 bp ED Course: 11:50 Inserted saline lock: 22 gauge in right forearm, using aseptic technique. bp 11:50 Arm band placed on. bp 11:56 Patient arrived in ED. ap3 11:57 Mikael Gonzales MD is Attending Physician. rt 12:07 CT Stroke Brain w/o Contrast In Process Unspecified. EDMS 12:10 CT Head Angio In Process Unspecified. EDMS 12:10 CT Neck Angio In Process Unspecified. EDMS 12:20 Initial lab(s) drawn, by me, sent to lab. ap3 12:20 Patient has correct armband on for positive identification. Placed in gown. Bed in low ap3 position. Call light in reach. Side rails up X2. Adult w/ patient. court recording monitor on. Pulse ox on. NIBP on. 12:25 Doron, Nando, RN is Primary Nurse. bp 12:26 Triage completed. bp 12:44 Stroke CXR 1 View In Process Unspecified. EDMS 14:05 initiated transfer to [facility]. bd 14:41 Inserted saline lock: 18 gauge in left antecubital area, using aseptic technique. em1 14:42 No provider procedures requiring assistance completed. Patient transferred, IV remains bp in place. 14:42 Provided Education on: TNKASE. bp 14:49 pt accepted in transfer to [id number] admin approval given bd by Danial Hogue. Administered Medications: 12:29 Drug: Labetalol IV 10 mg IV at 10 calculated rate once Route: IV; Rate: 10 calculated bp rate; Site: right forearm; 14:42 Follow up: IV Status: Completed infusion bp 12:44 Drug: TNK FOR STROKE - Tenecteplase IV 0.25 mg/kg IV at per protocol once; MAX bp DOSE 25 mg, IVP over 5 seconds {Co-Signature: es3 (Lizzy Dial RN).} Route: IV; Rate: per protocol; Site: right forearm; 14:43 Follow up: IV Status: Completed infusion bp Medication: 14:42 VIS not applicable for this client. bp Outcome: 14:12 ER care complete, transfer ordered by . rt 14:42 Transferred by helicopter to [facility], Transfer form completed. bp 14:42 Condition: stable 14:42 Instructed on the need for transfer, 14:47 Patient left the ED. bp NIH Stroke Scale - NIH Stroke Score Date: 07/27/2023 Time: 11:50 Total Score = 0 10. Dysarthria (speech clarity - read or repeat words) - 0(Normal) 11. Extinction and Inattention (visual/tactile/auditory/spatial/personal) - 0(No abnormality) 1a. Level of Consciousness (LOC) - 0(Alert) 1b. Level of Consciousness (LOC) (Month \T\ Age) - 0(Both) 1c. LOC Commands (Open \T\ Closes Eyes/Medicine Aide) - 0(Both) 2. Best Gaze (Lateral Gaze Paresis) - 0(Normal) 3. Visual Field Loss - 0(No visual loss) 4. Facial Palsy - 0(Normal) 5a. Left Arm: Motor (10-second hold) - 0(No drift) 5b. Right Arm: Motor (10-second hold) - 0(No drift) 6a. Left Leg: Motor (5-second hold - always test supine) - 0(No drift) 6b. Right Leg: Motor (5-second hold - always test supine) - 0(No drift) 7. Limb Ataxia (finger/nose \T\ heel/gerber - test with eyes open) - 0(Absent) 8. Sensory Loss (pinprick arms/legs/face) - 0(Normal) 9. Best Language: Aphasia (description/naming/reading) - 0(No aphasia) Initials: bp NIH Stroke Scale - NIH Stroke Score Date: 07/27/2023 Time: 13:30 Total Score = 0 10. Dysarthria (speech clarity - read or repeat words) - 0(Normal) 11. Extinction and Inattention (visual/tactile/auditory/spatial/personal) - 0(No abnormality) 1a. Level of Consciousness (LOC) - 0(Alert) 1b. Level of Consciousness (LOC) (Month \T\ Age) - 0(Both) 1c. LOC Commands (Open \T\ Closes Eyes/Medicine Aide) - 0(Both) 2. Best Gaze (Lateral Gaze Paresis) - 0(Normal) 3. Visual Field Loss - 0(No visual loss) 4. Facial Palsy - 0(Normal) 5a. Left Arm: Motor (10-second hold) - 0(No drift) 5b. Right Arm: Motor (10-second hold) - 0(No drift) 6a. Left Leg: Motor (5-second hold - always test supine) - 0(No drift) 6b. Right Leg: Motor (5-second hold - always test supine) - 0(No drift) 7. Limb Ataxia (finger/nose \T\ heel/gerber - test with eyes open) - 0(Absent) 8. Sensory Loss (pinprick arms/legs/face) - 0(Normal) 9. Best Language: Aphasia (description/naming/reading) - 0(No aphasia) Initials: bp Signatures: Dispatcher [employer] EDPriscilla Macias Eric em1 Nando Sal RN RN bp Jes Mccoy RN RN ap3 Mikael Gonzales MD MD rt Lizzy Dial RN es3 Corrections: (The following items were deleted from the chart) 12:29 12:22 BP 200 / 66 L Arm; Pulse 83bpm; Pulse Ox 98% RA; ap3 bp
--- NOTE | 2023-07-27 14:13 | EDPHYS ---
Physician Documentation [facility] Name: Mara Pereyra Age: 87 yrs Sex: Female : 1935 Arrival Date: 07/27/2023 Time: 11:49 Bed 15 Private MD: ED Physician Mikael Gonzales HPI: 07/27 16:39 This 87 yrs old Female presents to ER via Wheelchair with complaints of S/S of Possible rt Stroke. 16:39 Patient presents to the ED about 30 minutes following acute onset of aphasia. The rt patient was having difficulty getting words out, had a very slurred speech per . At the time my evaluation, the slurred speech has significantly improved, patient states that she is only slow to speak. She denies other neurologic complaints, other symptoms. Symptoms are severe in severity, no other aggravating elevating factors.. Historical: - Allergies: 11:50 No Known Allergies; bp - PMHx: 11:50 Hypertensive disorder; bp - Immunization history:: Adult Immunizations up to date. - Social history:: Smoking status: Patient denies any tobacco usage or history of. - Family history:: not pertinent. ROS: 16:39 Constitutional: Negative for fever, chills, and weight loss, Cardiovascular: Negative rt for chest pain, palpitations, and edema, Respiratory: Negative for shortness of breath, cough, wheezing, and pleuritic chest pain, Abdomen/GI: Negative for abdominal pain, nausea, vomiting, diarrhea, and constipation, MS/Extremity: Negative for injury and deformity, Skin: Negative for injury, rash, and discoloration, Psych: Negative for depression, anxiety, suicide ideation, homicidal ideation, and hallucinations, 16:39 Neuro: Positive for dizziness, speech changes, Exam: 16:39 Radiologist reports: No acute hemorrhage rt 16:39 Constitutional: This is a well developed, well nourished patient who is awake, alert, and in no acute distress. Head/Face: Normocephalic, atraumatic. Chest/axilla: Normal chest wall appearance and motion. Nontender with no deformity. No lesions are appreciated. Cardiovascular: Regular rate and rhythm with a normal S1 and S2. No gallops, murmurs, or rubs. Normal PMI, no JVD. No pulse deficits. Respiratory: Lungs have equal breath sounds bilaterally, clear to auscultation and percussion. No rales, rhonchi or wheezes noted. No increased work of breathing, no retractions or nasal flaring. Abdomen/GI: Soft, non-tender, with normal bowel sounds. No distension or tympany. No guarding or rebound. No evidence of tenderness throughout. Skin: Warm, dry with normal turgor. Normal color with no rashes, no lesions, and no evidence of cellulitis. MS/ Extremity: Pulses equal, no cyanosis. Neurovascular intact. Full, normal range of motion. Psych: Awake, alert, with orientation to person, place and time. Behavior, mood, and affect are within normal limits. 16:39 Neuro: No appreciable dysarthria, aphasia, left lower visual field deficits in both left and right eyes, extraocular muscles are intact, strength and sensation intact upper lower extremities, no cranial nerve deficits, 16:39 ECG was reviewed by the Attending Physician. rt Vital Signs: 12:22 BP 200 / 66 LA; Pulse 83; Pulse Ox 98% on R/A; Weight 74 kg; bp 12:30 BP 151 / 58; Pulse 57; Resp 16; Pulse Ox 99% ; bp 13:30 BP 156 / 57; Pulse 61; Resp 15; Pulse Ox 99% ; bp 14:30 BP 169 / 63; Pulse 62; Resp 16; Pulse Ox 100% ; bp NIH Stroke Scale Scores: 11:50 NIHSS Score: 0 bp 13:30 NIHSS Score: 0 bp MDM: 11:58 Patient medically screened. rt 16:39 Differential diagnosis: CVA, TIA. Data reviewed: vital signs, nurses notes, lab test rt result(s), EKG, radiologic studies. Consideration of Admission/Observation Escalation of care including admission/observation considered. Patient requires transfer for higher level of care. Management of patient was discussed with the following: Operator Coating Furnace: Discussed with Dr. Vogel, states that patient requires transfer for possible carotid surgery. I considered the following discharge prescriptions or medication management in the emergency department Medications were administered in the Emergency Department. See MAR. Independent interpretation of the following test(s) in the Emergency Department CT Scan: My interpretation is No intracranial hemorrhage seen on interpretation of CT scan images. Care significantly affected by the following chronic conditions: Hypertension. Counseling: I had a detailed discussion with the patient and/or guardian regarding the historical points, exam findings, and any diagnostic results supporting the discharge/admit diagnosis, lab results, radiology results, the need to transfer to another facility. Response to treatment: the patient's symptoms have markedly improved after treatment. 07/27 11:58 Order name: Basic Metabolic Panel; Complete Time: 12:54 rt 07/27 11:58 Order name: CBC with Diff; Complete Time: 12:54 rt 07/27 11:58 Order name: Hepatic Function; Complete Time: 12:54 rt 07/27 11:58 Order name: High Sensitivity Troponin; Complete Time: 12:54 rt 07/27 11:58 Order name: Magnesium; Complete Time: 12:54 rt 07/27 11:58 Order name: Protime (+inr); Complete Time: 12:54 rt 07/27 11:58 Order name: Ptt, Activated; Complete Time: 12:54 rt 07/27 12:28 Order name: Glucose, Ancillary Testing; Complete Time: 12:54 EDMS 07/27 11:58 Order name: CT Head Angio; Complete Time: 12:54 rt 07/27 11:58 Order name: CT Neck Angio; Complete Time: 12:54 rt 07/27 11:58 Order name: CT Stroke Brain w/o Contrast; Complete Time: 12:54 rt 07/27 11:58 Order name: Stroke CXR 1 View; Complete Time: 13:25 rt 07/27 11:58 Order name: EKG; Complete Time: 11:58 rt 07/27 11:58 Order name: Accucheck; Complete Time: 12:20 rt 07/27 11:58 Order name: Cardiac monitoring; Complete Time: 12:20 rt 07/27 11:58 Order name: EKG - Nurse/Tech; Complete Time: 12:46 rt 07/27 11:58 Order name: IV Saline Lock; Complete Time: 12:20 rt 07/27 11:58 Order name: Labs collected and sent; Complete Time: 12:20 rt 07/27 11:58 Order name: NPO; Complete Time: 12:20 rt 07/27 11:58 Order name: O2 Per Protocol; Complete Time: 12:20 rt 07/27 11:58 Order name: O2 Sat Monitoring; Complete Time: 12:20 rt 07/27 11:58 Order name: Stroke Swallow Screen; Complete Time: 12:30 rt EC:39 Rate is 57 beats/min. Rhythm is regular, Sinus bradycardia with No ectopy, Left bundle rt branch block. Left axis deviation noted. OH interval is normal. QT interval is normal. No Q waves. Administered Medications: 12:29 Drug: Labetalol IV 10 mg IV at 10 calculated rate once Route: IV; Rate: 10 calculated bp rate; Site: right forearm; 14:42 Follow up: IV Status: Completed infusion bp 12:44 Drug: TNK FOR STROKE - Tenecteplase IV 0.25 mg/kg IV at per protocol once; MAX bp DOSE 25 mg, IVP over 5 seconds {Co-Signature: es3 (Lizzy Dial RN).} Route: IV; Rate: per protocol; Site: right forearm; 14:43 Follow up: IV Status: Completed infusion bp Disposition Summary: 07/27/23 14:12 Transfer Ordered Notes: Transfer Location: [facility] rt Reason: Higher level of care rt Condition: Fair rt Problem: new rt Symptoms: have improved rt Accepting Physician: (07/27/23 14:47) bp Diagnosis - Severe left carotid stenosis rt - Cerebrovascular accident rt Forms: - Medication Reconciliation Form rt - SBAR form rt Critical care time excluding procedures: 16:57 Critical care time: Bedside Care: 30 minutes, Consultation: 10 minutes. Total time: 40 rt minutes NIH Stroke Scale - NIH Stroke Score Date: 07/27/2023 Time: 11:50 Total Score = 0 10. Dysarthria (speech clarity - read or repeat words) - 0(Normal) 11. Extinction and Inattention (visual/tactile/auditory/spatial/personal) - 0(No abnormality) 1a. Level of Consciousness (LOC) - 0(Alert) 1b. Level of Consciousness (LOC) (Month \T\ Age) - 0(Both) 1c. LOC Commands (Open \T\ Closes Eyes/Dragline Mechanic) - 0(Both) 2. Best Gaze (Lateral Gaze Paresis) - 0(Normal) 3. Visual Field Loss - 0(No visual loss) 4. Facial Palsy - 0(Normal) 5a. Left Arm: Motor (10-second hold) - 0(No drift) 5b. Right Arm: Motor (10-second hold) - 0(No drift) 6a. Left Leg: Motor (5-second hold - always test supine) - 0(No drift) 6b. Right Leg: Motor (5-second hold - always test supine) - 0(No drift) 7. Limb Ataxia (finger/nose \T\ heel/gerber - test with eyes open) - 0(Absent) 8. Sensory Loss (pinprick arms/legs/face) - 0(Normal) 9. Best Language: Aphasia (description/naming/reading) - 0(No aphasia) Initials: bp NIH Stroke Scale - NIH Stroke Score Date: 07/27/2023 Time: 13:30 Total Score = 0 10. Dysarthria (speech clarity - read or repeat words) - 0(Normal) 11. Extinction and Inattention (visual/tactile/auditory/spatial/personal) - 0(No abnormality) 1a. Level of Consciousness (LOC) - 0(Alert) 1b. Level of Consciousness (LOC) (Month \T\ Age) - 0(Both) 1c. LOC Commands (Open \T\ Closes Eyes/Dragline Mechanic) - 0(Both) 2. Best Gaze (Lateral Gaze Paresis) - 0(Normal) 3. Visual Field Loss - 0(No visual loss) 4. Facial Palsy - 0(Normal) 5a. Left Arm: Motor (10-second hold) - 0(No drift) 5b. Right Arm: Motor (10-second hold) - 0(No drift) 6a. Left Leg: Motor (5-second hold - always test supine) - 0(No drift) 6b. Right Leg: Motor (5-second hold - always test supine) - 0(No drift) 7. Limb Ataxia (finger/nose \T\ heel/gerber - test with eyes open) - 0(Absent) 8. Sensory Loss (pinprick arms/legs/face) - 0(Normal) 9. Best Language: Aphasia (description/naming/reading) - 0(No aphasia) Initials: bp Signatures: Dispatcher [employer] Nando Peña RN RN bp Mikael Gonzales MD MD rt Lizzy Dial RN es3 Corrections: (The following items were deleted from the chart) 14:47 14:12 rt bp
[2023-07-27 16:30] VITALS: BP 169/63; O2SAT 100
== END ==
LOC: ER 11:49
DX: I63.232 Cerebral infarction due to unspecified occlusion or stenosis of left carotid arteries (principal); I10 Essential (primary) hypertension; R29.700 NIHSS score 0
CPT/HCPCS: 93005; 85025; 80048; 36415; 83735; 85610; 82565; 82947; 80076; 85730; 84484; 70496; 70498; 70450; 71045; 96375; Q9967; J3101

== ENCOUNTER → 2023-08-02 | Emergency (ER) | payer OTHER, MEDICARE ==
--- OUTSIDE RECORDS SUMMARY | 2023-08-02 15:00 | XMS REPORT | Clinical Summary ---
Author Name Unknown Organization [facility] Address [address] [place] [address] Care Team Providers Care Care Mgr Name Role Phone Trista Medina MD Primary Care Provider [phone] Sy Ybarra MD Unavailable [phone] Allergies No known active allergies Medications Medication [...] Comments COVID-19 Vaccination (#1) 09/22/1940 Care Teams Care Mgr Relationship Specialty Start Date End Date Trista Medina MD PCP - General Dermatology 12/26/20 Sy Ybarra MD [address] [place] [id number] PCP - External Primary Care Provider Internal Medicine 01/03/21
--- NOTE | 2023-08-02 17:07 | RAD REPORT ---
EXAM DESCRIPTION: CT - Head Brain Wo Cont - 08/02/2023 4:38 pm CLINICAL HISTORY: Dizziness COMPARISON: July 27, 2023 TECHNIQUE: Computed axial tomography of the head was obtained. IV contrast was not requested. All CT scans are performed using dose optimization technique as appropriate and may include automated exposure control or mA/KV adjustment according to patient size. FINDINGS: An intracranial bleed is not seen The ventricles are normal in caliber No extra-axial fluid collection is noted. Moderate low-density areas within periventricular, deep and subcortical white matter likely represent ischemic changes secondary to small vessel disease. Fluid within the sinuses/ mastoids is not seen. IMPRESSION: No acute intracranial abnormality is seen If patient's symptoms persist MRI of the brain would be recommended
--- NOTE | 2023-08-02 17:11 | RAD REPORT ---
EXAM DESCRIPTION: [place] Single View08/02/2023 4:54 pm CLINICAL HISTORY: Syncope and weakness COMPARISON: June 2023 FINDINGS: The lungs appear clear of acute infiltrate. The heart is normal size. Battery pack left c hest IMPRESSION: No acute abnormalities displayed
[2023-08-02 17:25] LABS: Potassium 4.6 mEq/L (3.5-5.1); Troponin High Sensitivity 11.1 pg/mL (<58.9)
[2023-08-02 17:33] LABS: Absolute Lymphocytes (CBC) 2.4 K/uL (0.7-4.9); Hematocrit 39.4 % (36.0-45.0); Lymphocytes % 28.6 % (15.3-44.8); MCV 94.4 fL (80-100); MPV 7.4 fL (7.6-11.3); Platelets 285 thou/uL (152-406); RBC Red Blood Cell Count 4.17 M/uL (3.86-4.86)
--- NOTE | 2023-08-02 17:37 | ER ---
Nurse's Notes [facility] Name: Mara Pereyra Age: 87 yrs Sex: Female : 1935 Arrival Date: 08/02/2023 Time: 14:57 Bed 14 Private MD: Diagnosis: Near syncope, resolved Presentation: 02 16:04 Chief complaint: Seen in ED last Thursday for CVA, was given TNK and flown to [facility], hb reports dizziness that started while watching television, near syncopal episode after standing up. Dizziness has subsided, now reports generalized weakness. Coronavirus screen: At this time, the client does not indicate any symptoms associated with coronavirus-19. Ebola Screen: No symptoms or risks identified at this time. Initial Sepsis Screen: Does the patient meet any 2 criteria? No. Patient's initial sepsis screen is negative. Does the patient have a suspected source of infection? No. Patient's initial sepsis screen is negative. Risk Assessment: Do you want to hurt yourself or someone else? Patient reports no desire to harm self or others. Onset of symptoms was August 02, 2023 at 11:30. 16:04 Method Of Arrival: Ambulatory hb 16:04 Acuity: LYSSA 2 hb Triage Assessment: 16:05 General: Appears in no apparent distress. Behavior is cooperative, appropriate for age, bp anxious. Pain: Denies pain. GI: Reports nausea. Historical: - Allergies: 16:08 No Known Allergies; hb - PMHx: 16:08 Hypertensive disorder; CVA; hb - Immunization history:: Adult Immunizations up to date. - Social history:: Smoking status: Patient denies any tobacco usage or history of. Screenin:00 [facility] ED Fall Risk Assessment (Adult) History of falling in the last 3 months, bp including since admission No falls in past 3 months (0 pts). Abuse screen: Denies threats or abuse. Denies injuries from another. Nutritional screening: No deficits noted. Tuberculosis screening: No symptoms or risk factors identified. Assessment: 16:05 General: SEE TRIAGE NOTE. bp 18:00 GI: Abdomen is non-distended. bp Vital Signs: 16:04 BP 178 / 70; Pulse 69; Resp 16; Temp 98.6(O); Pulse Ox 100% on R/A; Weight 71.21 kg; hb Height 5 ft. 3 in. ; Pain 0/10; 17:03 BP 142 / 77; Pulse 56; Resp 12; Temp 97.9; Pulse Ox 100% on R/A; jg11 18:00 BP 120 / 54; Pulse 58; Resp 12; Pulse Ox 98% ; bp 16:04 Body Mass Index 27.81 (71.21 kg, 160.02 cm) hb 16:04 Pain Scale: Adult hb ED Course: 15:01 Patient arrived in ED. im 16:08 Triage completed. hb 16:09 Arm band placed on. hb 16:19 Micah Phillips MD is Attending Physician. sp3 16:27 Nando Sal, RN is Primary Nurse. bp 16:30 Inserted saline lock: 22 gauge in right antecubital area, using aseptic technique. bp Blood collected. 16:40 CT Head Brain wo Cont In Process Unspecified. EDMS 16:56 XRAY Chest (1 view) In Process Unspecified. EDMS 17:03 EKG done, by ED staff. jg11 18:00 Patient has correct armband on for positive identification. bp 18:00 No provider procedures requiring assistance completed. IV discontinued. bp Administered Medications: No medications were administered Medication: 18:00 VIS not applicable for this client. bp Outcome: 17:37 Discharge ordered by . sp3 18:00 Discharged to home ambulatory, with family, bp 18:00 Condition: stable 18:00 Discharge instructions given to patient, Instructed on discharge instructions, follow up and referral plans. Demonstrated understanding of instructions, follow-up care, 18:15 Patient left the ED. bp Signatures: Dispatcher [employer] EDHI Jennifer Ayala, ASTRID RN Nando Sal, RN RN bp Micah Phillips MD MD sp3 Nissa Lopez Jordan [email or web address]
--- NOTE | 2023-08-02 17:37 | EDPHYS ---
Physician Documentation [facility] Name: Mara Pereyra Age: 87 yrs Sex: Female : 1935 Arrival Date: 08/02/2023 Time: 14:57 Bed 14 Private MD: ED Physician Micah Phillips HPI: 08/02 17:33 This 87 yrs old Female presents to ER via Ambulatory with complaints of Dizziness, sp3 Nausea, Weakness. 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 She was recently discharged and now presents to the ED today for near syncope x 1 after standing up. No focal deficits reported. Her last CVA presented with change in speech and aphasia. Patient reports no such symptoms here. She also denies any weakness, focal neurological deficit, memory change, vision change, headache, fever, neck pain, chest pain, shortness of breath, abdominal pain, nausea, vomiting, diarrhea, full syncope, lower extremity paresthesias, or any other signs or symptoms on ROS at this time.. Historical: - Allergies: 16:08 No Known Allergies; hb - PMHx: 16:08 Hypertensive disorder; CVA; hb - Immunization history:: Adult Immunizations up to date. - Social history:: Smoking status: Patient denies any tobacco usage or history of. ROS: 17:34 Constitutional: Negative for fever, chills, and weight loss, Eyes: Negative for injury, sp3 pain, redness, and discharge, ENT: Negative for injury, pain, and discharge, Neck: Negative for injury, pain, and swelling, Cardiovascular: Negative for chest pain, palpitations, and edema, Respiratory: Negative for shortness of breath, cough, wheezing, and pleuritic chest pain, Abdomen/GI: Negative for abdominal pain, nausea, vomiting, diarrhea, and constipation, Back: Negative for injury and pain, MS/Extremity: Negative for injury and deformity, Skin: Negative for injury, rash, and discoloration, Psych: Negative for depression, anxiety, suicide ideation, homicidal ideation, and hallucinations, Allergy/Immunology: Negative for hives, rash, and allergies, Endocrine: Negative for neck swelling, polydipsia, polyuria, polyphagia, and marked weight changes, Hematologic/Lymphatic: Negative for swollen nodes, abnormal bleeding, and unusual bruising, 17:34 All other systems are negative, Exam: 17:35 Constitutional: This is a well developed, well nourished patient who is awake, alert, sp3 and in no acute distress. Head/Face: Normocephalic, atraumatic. Eyes: Pupils equal round and reactive to light, extra-ocular motions intact. Lids and lashes normal. Conjunctiva and sclera are non-icteric and not injected. Cornea within normal limits. Periorbital areas with no swelling, redness, or edema. ENT: Nares patent. No nasal discharge, no septal abnormalities noted. External auditory canals are clear. Oropharynx with no redness, swelling, or masses, exudates, or evidence of obstruction, uvula midline. Mucous membranes moist. Neck: Trachea midline, no thyromegaly or masses palpated, and no cervical lymphadenopathy. Supple, full range of motion without nuchal rigidity, or vertebral point tenderness. No Meningismus. Chest/axilla: Normal chest wall appearance and motion. Nontender with no deformity. No lesions are appreciated. Cardiovascular: Regular rate and rhythm with a normal S1 and S2. No gallops, murmurs, or rubs. Normal PMI, no JVD. No pulse deficits. Respiratory: Lungs have equal breath sounds bilaterally, clear to auscultation and percussion. No rales, rhonchi or wheezes noted. No increased work of breathing, no retractions or nasal flaring. Abdomen/GI: Soft, non-tender, with normal bowel sounds. No distension or tympany. No guarding or rebound. No evidence of tenderness throughout. Back: No spinal tenderness. No costovertebral tenderness. Full range of motion. Skin: Warm, dry with normal turgor. Normal color with no rashes, no lesions, and no evidence of cellulitis. MS/ Extremity: Pulses equal, no cyanosis. Neurovascular intact. Full, normal range of motion. Neuro: Awake and alert, GCS 15, oriented to person, place, time, and situation. Cranial nerves II-XII grossly intact. Motor strength 5/5 in all extremities. Sensory grossly intact. Cerebellar exam normal. Normal gait. Psych: Awake, alert, with orientation to person, place and time. Behavior, mood, and affect are within normal limits. 17:35 ECG was reviewed by the Attending Physician. EKG demonstrates normal sinus rhythm at 64 bpm with normal intervals, normal axis, nonspecific intraventricular conduction delay, nonspecific diffuse ST/T changes without evidence of acute ischemia. Vital Signs: 16:04 BP 178 / 70; Pulse 69; Resp 16; Temp 98.6(O); Pulse Ox 100% on R/A; Weight 71.21 kg; hb Height 5 ft. 3 in. ; Pain 0/10; 17:03 BP 142 / 77; Pulse 56; Resp 12; Temp 97.9; Pulse Ox 100% on R/A; [id number] 18:00 BP 120 / 54; Pulse 58; Resp 12; Pulse Ox 98% ; bp 16:04 Body Mass Index 27.81 (71.21 kg, 160.02 cm) hb 16:04 Pain Scale: Adult hb MDM: 16:44 Patient medically screened. sp3 17:35 Data reviewed: vital signs, nurses notes, old medical records, lab test result(s), EKG, sp3 radiologic studies. ED course: 87-year-old female with near syncope now fully resolved. I do believe patient is having another TIA/CVA. CT scan of the head is negative chest x-ray is normal. Laboratory values are pending and if negative we will safely discharge patient home with PCP and neurology follow-up.. 08/02 16:18 Order name: Basic Metabolic Panel; Complete Time: 17:36 hb 08/02 16:18 Order name: CBC with Diff; Complete Time: 17:36 hb 08/02 16:18 Order name: Troponin HS; Complete Time: 17:36 hb 08/02 16:18 Order name: XRAY Chest (1 view); Complete Time: 17:23 hb 08/02 16:18 Order name: CT Head Brain wo Cont; Complete Time: 17:23 hb 08/02 16:18 Order name: EKG; Complete Time: 16:19 hb 08/02 16:18 Order name: Cardiac monitoring; Complete Time: 16:30 hb 02 16:18 Order name: EKG - Nurse/Tech; Complete Time: 17:03 hb 02 16:18 Order name: IV Saline Lock; Complete Time: 16:30 hb 08/02 16:18 Order name: Labs collected and sent; Complete Time: 16:30 hb 02 16:18 Order name: O2 Per Protocol; Complete Time: 16:30 hb 08/02 16:18 Order name: O2 Sat Monitoring; Complete Time: 16:30 hb Administered Medications: No medications were administered Disposition Summary: 08/02/23 17:37 Discharge Ordered Notes: Location: Home sp3 Condition: Stable sp3 Diagnosis - Near syncope, resolved sp3 Followup: sp3 - With: Private Physician - When: Upon discharge from the Emergency Department - Reason: Continuance of care Discharge Instructions: - Discharge Summary Sheet sp3 - Near-Syncope sp3 Forms: - Medication Reconciliation Form sp3 - Thank You Letter sp3 - Antibiotic Education sp3 - Prescription Opioid Use sp3 - Patient Portal Instructions sp3 - Leadership Thank You Letter sp3 Signatures: Dispatcher [employer] Jennifer Lyman RN RN hb Patel, Setul, MD MD sp3
[2023-08-02 21:40] VITALS: BP 120/54; TEMP 97.9; O2SAT 98
--- NOTE | 2023-08-03 14:59 | EKG ---
Test Date: 2023-08-02 Test Time: 16:55:56 Network Contract Manager: JANNETTE MEASUREMENT RESULTS: Intervals: Rate: 64 AL: 158 QRSD: 138 QT: 462 QTc: 476 [place]: P: 69 AL: 158 QRS: 71 T: -52 INTERPRETIVE STATEMENTS: Normal sinus rhythm Nonspecific intraventricular block T wave abnormality, consider inferior ischemia Abnormal ECG Compared to ECG 07/27/2023 12:35:13 T-wave abnormality now present Possible ischemia now present Sinus bradycardia no longer present Sinus arrhythmia no longer present Left bundle-branch block no longer present Electronically Signed On 08-03-23 14:57:23 LIME PLANT OPERATOR by Bill Ford
== END ==
LOC: ER 14:57
DX: R42 Dizziness and giddiness (principal); I10 Essential (primary) hypertension; R53.1 Weakness; R11.0 Nausea; Z86.73 Personal history of transient ischemic attack (TIA), and cerebral infarction without residual deficits
CPT/HCPCS: 36415; 70450; 71045; 80048; 84484; 85025; 93005

== ENCOUNTER 2023-08-20 07:00 | Day surgery (SDC) | payer OTHER, MEDICARE ==
[2023-08-18 14:24] LABS: Absolute Lymphocytes (CBC) 3.7 K/uL (0.7-4.9); Hematocrit 39.2 % (36.0-45.0); Lymphocytes % 36.7 % (15.3-44.8); MCV 95.3 fL (80-100); MPV 7.1 fL (7.6-11.3); Platelets 266 thou/uL (152-406); RBC Red Blood Cell Count 4.11 M/uL (3.86-4.86)
[2023-08-18 15:01] LABS: Protime INR 0.96
[2023-08-18 15:15] LABS: Potassium 4.7 mEq/L (3.5-5.1)
[2023-08-20] MEDS ORDERED: NA CHLORIDE 0.9% 500 ML ONE (07:13)
[2023-08-20] MEDS ORDERED: LIDOCAINE 1% 20 ML MDV ONE (07:26)
[2023-08-20] MEDS ORDERED: MIDAZOLAM HCL 2 MG/2 ML INJ ONE (07:27)
[2023-08-20] MEDS ORDERED: FENTANYL CITR 100 MCG/2 ML ONE (07:27)
[2023-08-20] MEDS ORDERED: ATROPINE SULF 1 MG/10 ML SYR IV ONE (07:27)
[2023-08-20] MEDS ORDERED: HEPARIN/D5W 0 UNIT/0 ML BAG IV ONE (07:28)
[2023-08-20] MEDS ORDERED: HEPA 1000U/500MLS 2,000 UNIT/1,000 ML BAG IV ONE (07:29)
[2023-08-20] MEDS ORDERED: ONDANSETRON 4 MG/2 ML VIAL ONE (08:59)
[2023-08-20 11:59] VITALS: BP 152/47; O2SAT 98
--- NOTE | 2023-08-20 16:14 | EKG ---
Test Date: 2023-08-18 Test Time: 14:52:47 Gas Station Supervisor: PREO MEASUREMENT RESULTS: Intervals: Rate: 57 VA: 170 QRSD: 150 QT: 470 QTc: 457 [place]: P: 52 VA: 170 QRS: -27 T: 100 INTERPRETIVE STATEMENTS: Sinus bradycardia with sinus arrhythmia Left bundle branch block Abnormal ECG Compared to ECG 08/02/2023 16:55:56 Left bundle-branch block now present Sinus rhythm no longer present T-wave abnormality no longer present Possible ischemia no longer present Electronically Signed On 08-20-23 16:06:49 HISTOLOGIC TECHNICIAN by Bill Ford
== END 2023-08-20 12:20 | disposition home or self-care (01) ==
LOC: CCL 07:00
PROVIDERS: ATTEND Internal Medicine
DX: I65.23 Occlusion and stenosis of bilateral carotid arteries (principal); I25.10 Atherosclerotic heart disease of native coronary artery without angina pectoris; I10 Essential (primary) hypertension; I44.7 Left bundle-branch block, unspecified; E78.2 Mixed hyperlipidemia; Z86.73 Personal history of transient ischemic attack (TIA), and cerebral infarction without residual deficits; Z79.82 Long term (current) use of aspirin; Z79.899 Other long term (current) drug therapy
CPT/HCPCS: 93005; 85025; 80048; 36415; 85610; 85730; 36222; 76937; C1893; J2001; J2250; J3010; J2405; J7040; 99152; 99153; J0461